=== PATIENT | male | born 1970 ===

== ENCOUNTER 2023-03-17 09:35 | Outpatient (CLI) | payer OTHER, SELFPAY ==
--- NOTE | ~2023-03-17 | MR_ITS ---
MRI of the brain Clinical History: Headache Technique: Axial and sagittal T1-weighted images were acquired. These were followed by axial T2-weigh liz, diffusion weighted, gradient, and FLAIR images. Following intravenous administration of 19 cc Mu ltiHance gadolinium, T1-weighted fat-sat imaging was performed in the axial and coronal planes. Findings: There is no acute infarct, internal hemorrhage, or mass lesion. There are mild to moderate chronic white matter changes in the periventricular white matter bilaterally. Ventricles and subarachnoid spaces are unremarkable. Orbits are unremarkable. Paranasal sinuses and l eft mastoid air cells are clear. There is minimal fluid in right mastoid air cells. Major intracrania l flow voids appear intact. Sagittal midline structures are intact. No abnormal postcontrast enhancement identified. IMPRESSION: No acute infarct, intracranial hemorrhage or mass lesion. Mild to moderate chronic microvascular ischemic changes. Reviewed, dictated and finalized at [facility].
== END 2023-03-17 09:36 ==
DX: R51.9 Headache, unspecified (principal)
CPT/HCPCS: 70553; A9577